=== PATIENT | female | born 1940 | race Caucasian/White ===

== ENCOUNTER 2017-04-26 07:28 | Day surgery (SDC) | payer MEDICARE, MEDICAID ==
--- NOTE | 2017-04-26 05:40 | History and Physical Report ---
DATE: 04/25/2017. CHIEF COMPLAINT AND HISTORY OF CHIEF COMPLAINT: This patient presents with a history of a spine which has had multiple surgeries with extensive fusion throughout the thoracic and lumbar area. A spinal infusion pump was implanted on 11/09/2010. Over the last number of refills her pump has been identified with battery depletion. She is here for a battery replacement without parameter change. We will evaluate the catheter integrity. PAST MEDICAL HISTORY: Hypertension, cardiac arrhythmia, bladder dysfunction, degenerative arthritis. SOCIAL HISTORY: Caffeine consumption. FAMILY HISTORY: Hypertension, cerebrovascular disease. PAST SURGICAL HISTORY: Lumbar spinal surgery. MEDICATIONS ON ADMISSION: To be provided. ALLERGIES: To be provided. REVIEW OF SYSTEMS: The patient seems appropriate and in no acute distress. The remainder of the systems review shows glasses and blood pressure problems. PHYSICAL EXAMINATION: General: Height and weight are not known. Vital Signs: Unavailable. HEENT: Within normal limits. Lungs: Clear. Heart: Regular rate and rhythm. Abdomen: Nontender. Musculoskeletal: Examination of the musculoskeletal system shows the pump in the posterior gluteal margin on the left. The incisional site is intact. There is no breakdown or cellulitis. The primary region of pain is extensive throughout the low back and leg. Motor and sensory field function is generalized weakness, and assistive device is used. Sensory crook are intact. Neurologic: Cranial nerves are intact. IMPRESSION: 1. POSTLUMBAR LAMINECTOMY SYNDROME, ICD-10 CODE M96.1. 2. LUMBAR RADICULITIS, ICD-10 CODE M54.16 AND M54.17. 3. IMPLANTED SPINAL OPIOID INFUSION SYSTEM WITH HYDROMORPHONE WITH BATTERY DEPLETION. PLAN: The patient is here for battery replacement on an outpatient basis. The potential risks, side effects, and complications have all been reviewed and discussed. JOB NUMBER: [id number] cc: Primary Care Physician [facility]
[~2017-04-26 07:28] MED LIST: ACETAMINOPHEN 1,000 MG/100 ML BTL IV ONE; CEFAZOLIN 2 Gram 2 GM/50 ML BAG IVPB ONE; FAMOTIDINE 20MG TABLET PO ONE; MECLIZINE 25 MG TABLET PO ONE; METOCLOPRAMIDE 10 MG TABLET PO ONE; MORPHINE SULFATE 0.5 GM in 0.9 % SODIUM CHLORIDE 100ML 20 ML IV ONE; MORPHINE SULFATE/PF 0.05 MG in 0.9 % SODIUM CHLORIDE 10ML VIA 0.95 ML IV ONE; VANCOMYCIN HCL 1,000 MG in DEXTROSE 5 % IN WATER 250 ML IVPB ONE
[2017-04-26] MEDS ORDERED: KETOROLAC 30 MG/ML VIAL IVP ONE (07:29)
[2017-04-26] MEDS ORDERED: CEFAZOLIN 1G VIAL IM ONE (07:29)
[2017-04-26] MEDS ORDERED: LIDOCAINE 1% W/EPI 1:200,000 MPF 30ML SQ ONE (07:29)
[2017-04-26] MEDS ORDERED: MIDAZOLAM HCL 2MG/2ML VIAL IV ONE (07:29)
[2017-04-26] MEDS ORDERED: BUPIVACAINE 0.75% W/EPI MPF 30ML VIAL IVP ONE (07:29)
[2017-04-26] MEDS ORDERED: LIDOCAINE 2% MDV (20MG/ML) 20ML VIAL IV ONE (07:29)
[2017-04-26] MEDS ORDERED: ALFENTANIL HCL 500 MCG/1ML, 2ML AMP IV ONE (07:29)
[2017-04-26] MEDS ORDERED: SENNOSIDES/DOCUSATE SODIUM UD CAPSULE PO PRN ×2 (13:07)
[2017-04-26] MEDS ORDERED: HYDROMORPHONE HCL 1 MG/ML CPJ IM PRN (13:07)
[2017-04-26] MEDS ORDERED: HYDROMORPHONE HCL 2 MG/ML VIAL IM PRN (13:07)
[2017-04-26] MEDS ORDERED: METOCLOPRAMIDE 10 MG TABLET PO PRN (13:07)
[2017-04-26] MEDS ORDERED: HYDROCODONE/APAP 7.5/325MG TABLET PO PRN ×2 (13:07)
[2017-04-26] MEDS ORDERED: TEMAZEPAM 15 MG CAPSULE PO PRN ×2 (13:07)
[2017-04-26] MEDS ORDERED: AL HYDROX/MAG HYDROX 30ML UD PO PRN (13:07)
[2017-04-26] MEDS ORDERED: DIPHENHYDRAMINE HCL 25 MG CAPSULE PO PRN ×2 (13:07)
[2017-04-26] MEDS ORDERED: DIPHENHYDRAMINE HCL IV 50 MG/ML VIAL IVP PRN ×2 (13:07)
[2017-04-26] MEDS ORDERED: OXYCODONE/APAP 10MG-325MG TABLET PO PRN ×2 (13:07)
[2017-04-26] MEDS ORDERED: ACETAMINOPHEN 325 MG TAB PO PRN ×2 (13:07)
[2017-04-26] MEDS ORDERED: METOCLOPRAMIDE HCL 10 MG/2 ML VIAL IVP PRN (13:07)
[2017-04-26] MEDS ORDERED: VENTOLIN INHALER PUFF PRN (13:50)
[2017-04-26] MEDS ORDERED: ALBUTEROL HFA 8 GM INHALER INH PRN (14:07)
[2017-04-26] MEDS: PRAZOSIN 1 MG CAP PO SCH ×2 (16:18→21:50)
[2017-04-26] MEDS: CLONIDINE 0.1 MG PO SCH ×2 (16:18→21:50)
[2017-04-26] MEDS: RINGERS SOLUTION,LACTATED 1,000 ML IV SCH (16:20)
--- NOTE | 2017-04-26 18:21 | Operative Note - [place] ---
DATE OF SURGERY: 04/26/17 PREOPERATIVE DIAGNOSES: 1. POST LUMBAR LAMINECTOMY SYNDROME, ICD-10 CODE = M96.1. 2. LUMBAR RADICULITIS, ICD-10 CODE = M54.16 AND M54.17. 3. SPINAL OPIOID INFUSION SYSTEM MORPHINE WITH BATTERY DEPLETION PROGRAMMABLE PUMP. OPERATION: INCISION, SUBCUTANEOUS DISSECTION, REMOVAL AND REPLACEMENT OF PROGRAMMABLE PUMP AT LEFT POSTERIOR GLUTEAL MARGIN. SURGEON: STEPHANIE TEIXEIRA D.O. ANESTHESIA: LOCAL SEDATION. ANESTHESIA PROVIDER: PAGE BOWDEN CRNA. INDICATION: This patient presents with a history of an intractable lumbar radiculitis and postlaminectomy with hardware fusion from T1 through S1. An implanted spinal opioid infusion system with Morphine in place. Recent evaluations had demonstrated battery depletion. She is here for battery replacement. Very complicated medical history is requiring minimal sedation. There will be no diagnostics beyond the simple routine measures. PROCEDURE: Intravenous line, vital sign monitoring, IV sedation, prepped and draped with sterile technique. Patient position on the operating room table prone. Sterile prep, sterile technique. At the left posterior gluteal margin, skin infiltrated, incision made, and subcutaneous dissection was conducted to the pump pouch. The pouch was then opened and the pump exteriorized. Antibiotic irrigation and Bovie for hemostasis. The pump was then from the indwelling catheter and a new pump pre-filled with Morphine at 30 mg per mL concentration placed onto the field and interfaced with the indwelling catheter. A single Ethibond suture was used to secure the pump into the Dacron sheath pouch previously existing. With the pump in place, imaging was conducted to assure no kink or bends to the catheter. The catheter tip in the spinal space at T5 confirmed. The Dacron sheath was then closed with Vicryl. A subcutaneous closure with Vicryl and a running subcuticular Vicryl was then performed. Dermabond closure approximating the edges of the wound. She was transported to the Recovery Room stable, showing no side-effects from the procedure or the sedation. A very complicated patient medically with no support system at home, she will be kept overnight for observation and then discharged in the morning. DISCHARGE INSTRUCTIONS: 1. The sites are to remain clean and dry. No showering or bathing in any way that would disrupt dressings. If it happens, contact the clinic. 2. Standard medications resumed including Levaquin, the antibiotic, 500 mg once a day for 14 days. 3. The patient is to keep her activities low. She will be seen in the office in 7-10 days. The office will contact her to set up the evaluation for wound check. Should there be any problems with the wound, problems with the antibiotic , she should contact the clinic immediately. All other instructions were provided, numbers to contact, problems given. cc: Dr. Jarvis JOB NUMBER: [id number] MTDD
[2017-04-26] MEDS ORDERED: CARVEDILOL 12.5 MG PO SCH (22:00)
[2017-04-26] MEDS ORDERED: EFFEXOR 75 MG PO SCH (22:00)
[2017-04-26] MEDS ORDERED: XANAX 0.25 MG PO SCH (22:00)
[2017-04-26] MEDS ORDERED: VANCOMYCIN HCL 1,000 MG in DEXTROSE 5 % IN WATER 250 ML IVPB ONE ×2 (22:05)
[2017-04-27] MEDS: RINGERS SOLUTION,LACTATED 1,000 ML IV SCH (01:31)
[2017-04-27] MEDS ORDERED: CALCIUM VITAMIN D PO SCH (10:00)
[2017-04-27] MEDS ORDERED: INCRUSE INHALER PUFF SCH (10:00)
[2017-04-27] MEDS ORDERED: CARVEDILOL 12.5 PO SCH (10:00)
[2017-04-27] MEDS ORDERED: CRESTOR 20 MG PO SCH (10:00)
[2017-04-27] MEDS ORDERED: ALBUTEROL HFA 8 GM INHALER INH SCH (10:00)
[2017-04-27] MEDS ORDERED: ALDACTONE PO SCH (10:00)
== END 2017-04-27 09:00 | disposition home or self-care (01) ==
LOC: SUR 07:28 → MEDSURG 12:48 → SUR 04-27 09:00
PROVIDERS: ATTEND Pain Medicine Interventional Pain Medicine
DX: T85.890A Other specified complication of nervous system prosthetic devices, implants and grafts, initial encounter (principal); M96.1 Postlaminectomy syndrome, not elsewhere classified; M54.16 Radiculopathy, lumbar region; M54.17 Radiculopathy, lumbosacral region; I10 Essential (primary) hypertension; J45.909 Unspecified asthma, uncomplicated; E78.00 Pure hypercholesterolemia, unspecified
CPT/HCPCS: 62362; 00300; 62368; 85002; J1885; J3370; J3490; J0690; J7050; J7060; J7120